=== PATIENT | female | born 1965 | race Caucasian/White ===

== ENCOUNTER 2025-02-27 19:09 | Emergency (ER) | payer BC, SELFPAY ==
[2025-02-27 19:34] VITALS: BP 176/90; PULSE 59; RESP 16; TEMP 36.6; O2SAT 100; BMI 27.6
[2025-02-27 19:51] VITALS: BP 162/77; PULSE 57; RESP 18; TEMP 37.2; O2SAT 100
--- OUTSIDE RECORDS SUMMARY | 2025-02-27 19:57 | XMS_ITS | Continuity of Care Document ---
[facility] Organization [place] [facility] [facility] Address [address] [place] [address] Assessment Encounter Date Assessment Date Assessment LastModified by Organization Details LastModified Time 02/20/2025 02/20/2025 BSE reviewed and recommended . Reviewed calcium needs, exercise, and prevention of osteoporosis . Periodic colonoscopy screening recommended . Reviewed normal menopause and menopausal symptoms . Mammogram recommended yearly The patient was advised to continue a healthy diet and exercise regularly. She also was advised to: followup with a professional housing consultant for a colonoscopy have a mammogram have a practice physician evaluation. Labs will be sent to evaluate blood count, renal function lipids and vitamin D. [email or web address] Not available 02/20/2025 22:24:22 Plan of Treatment Reminders Order Date Submit Date Provider Last Modified By Organization Details Last Modified Time Details Appointments None recorded . Lab TSH + free T4, serum 02/21/20 [facility], [address], [address], [place], [address], 5 09:13:40 HbA1c (hemoglo bin A1c), blood 02/21/20 [facility], [address], [place] [address], [place], [address], 5 09:13:42 CBC w/ auto diff 025 02/21/20 [facility], [address], [address] [address], [place], [address], 5 09:13:40 CMP, serum or plasma 02/21/20 [facility], [address], [place] [address], [place], [address], 09:13:41 lipid panel, serum 02/21/20 [facility], [address], [place] [address], [place], [address], 09:13:42 microalb umin/cre atinine, mass ratio, urine 02/21/20 [facility], [address] [place] [address] , [place], [address], 12:36:51 PTH (parathy roid hormone) , intact, serum or plasma 02/21/20 [facility], [address], [place] [address], [place], [address], 09:13:43 Referral None recorded . Procedures None recorded . Surgeries None recorded . Imaging None recorded . Medication Orders None recorded . Patient TargetsNo targets recorded. Patient InstructionsNo instructions recorded. Reason for Referral None Reported. Results Created Date Observation Date Name Description Value Unit Range Abnormal Flag Note LastModifiedBy Organization Detail LastModifiedTime 02/21/2002/20/2025 micro album in/cr eatin ine, mass ratio , urine Microalbumin 10 mg/L Not Available [address] , [place], [address], 02/20/2025 11:48:16 02/21/2002/20/2025 micro album in/cr eatin ine, mass ratio , urine Creatinine 50 mg/dL Not Available [address] , [place], [address], 02/20/2025 11:48:16 02/21/2002/20/2025 micro album in/cr eatin ine, mass ratio , urine Ratio <30 mg/g Not Available [address] , [place], [address], 02/20/2025 11:48:16 Result Notes None recorded. Problems Name Problem SNOMED Code Status Onset Date Resolution Date Notes Provider Name and Address Organization Details Recorded Time Aphthous ulcer of mouth 378833362 Active 2023 Liset Whiteside, [employer] [address], [place], [address], [place] - [facility] 4 10:13:30 Contact dermatitis 95736818 Active 2023 Liset Whiteside [employer] [address], [place], [address], [place] - [facility] 4 10:22:15 Psoriasis 3305127 Active 2023 Liset Whiteside [employer] [address], [place], [address], [place] - [facility] 4 10:23:54 Prediabetes 420720209 Active 2023 Liset Whiteside, [employer] [address], [place], [address], [place] [facility] 4 10:26:37 Body mass index 30+ - obesity 397528070 Active 2024 Liset Whiteside, [employer] [address], [place], [address], [place] [facility] 5 09:50:56 Contact dermatitis caused by urushiol from [place] poison jace 937162616 Active 2024 Liset Whiteside, [employer] [address], [place], [address], [place] - [facility] 5 09:54:47 Upper respiratory infection 79081786 Active 2024 Liset Whiteside [employer] [address], [place], [address], [place] [facility] 5 13:33:22 Problem Notes None recorded. Procedures Surgical History Date Name Laterality Status Provider Name and Address Organization Details Recorded Time Eye Surgery completed Flora Mccarty [place] - [facility] 03/06/2024 09:49:29 total nephrectomy completed Flora Mccarty [place] - [facility] 03/06/2024 09:50:07 cholecystectomy completed Flora Mccarty [place] - [facility] 03/06/2024 09:50:26 Imaging Results None recorded. Procedure Notes None recorded. Medical Equipment None Reported. Allergies Allergen ID Allergen Name Allergen Category Reaction Reaction Severity Criticality Documentation Date Start Date Code Code System Note Provider Name and Address Organization Details Recorded Time 015324 amoxicill in medicatio n hives Not available high 03/06/2024 723 [facility] [place] in [place], [place] - [facility] 09:46:49 Medications Name Sig Start Date Stop Date Status Note LastModified by Organization Details LastModified Time Prescriptio n - Prior Authorizati on Request active Not Available Not Available N ot Available azithromyci n 250 mg tablet TAKE TWO (2) TABLETS (500 MG) BY ORAL ROUTE ONCE DAILY FOR ONE (1) DAY, THEN TAKE 1 TABLET (250 MG) BY ORAL ROUTE ONCE DAILY FOR FOUR (4) DAYS 02/20 completed Not Available Not Available Not Available valacyclovi r 1 gram tablet TAKE ONE (1) TABLET BY MOUTH EVERY 12 HOURS active Not Available Not Available No t Available prednisone 20 mg tablet TAKE ONE (1) TABLET EVERY DAY BY ORAL ROUTE FOR FIVE (5) DAYS. 02/20 completed Not Available Not Available Not Available triamcinolo ne acetonide 0.1 % topical cream APPLY A THIN LAYER TO THE AFFECTED AREA(S) BY TOPICAL ROUTE TWO (2) TIMES PER DAY NEEDED active Not Available Not Available No t Available Depo-Medrol 80 mg/mL suspension for injection Take 80 mg every day by injection route for 1 day. 09/18 completed Not Available Not Available Not Available Wegovy 0.25 mg/0.5 mL subcutaneou s pen injector Inject 0.25 mg every week by subcutane ous route. 02/20 completed Not Available Not Available Not Available Vitals Date Recorded Body height Body mass index (BMI) Body weight Pain severity - 0-10 verbal numeric rating [Score] - Reported Respiratory rate Oxygen saturation Oxygen saturation in Arterial blood by Pulse oximetry Heart rate Systolic And Diastolic Provider Name and Address Organization Details Last Updated DateTime 5 167.64 cm 28.6 kg/m2 59462.8 5 g 0 16 /min 97 % 97 % 70 /min 120/76 mm[Hg] Flora Garcia in [place] [facility] 5 11:25:55 Social History Question Answer Notes LastModified by [employer] Details LastModified Time Tobacco Smoking Status Never Smoker Flora Mccarty null, [place] [facility] 03/06/2024 09:47:58 What Is Your Level Of Caffeine Consumption? Heavy Information not available 03/06/2024 What Type Of Diet Are You Following? REGULAR Information not available 03/06/2024 What Is The Highest Grade Or Level Of School You Have Completed Or The Highest Degree You Have Received? [id number] Information not available 03/06/2024 What Is Your Relationship Status? Single Information not available 03/06/2024 Sex: Female Functional Status Question Answer Note LastModified by [employer] Details LastModified Time Do you use any illicit or recreational drugs? No Information not available 03/06/2024 What is your level of alcohol consumption? Occasional Information not available 03/06/2024 Are you currently employed? No Retired Information not available 03/06/2024 What is your exercise level? Occasional Information not available 03/06/2024 Mental Status None recorded. Family History Relationship Description Onset Age of this Age Resolved Age Notes LastModified by Organization Details LastModified Time Father Malignant neoplasm of prostate [email or web address] Not available 2024 11:12:20 Father Malignant neoplasm of bone [email or web address] Not available 2024 11:12:20 Father Prediabetes [email or web address] Not availab le 02/20/2025 11:12:20 Mother Hypertensive disorder [email or web address] Not available 09:55:15 Medical History No medical history recorded. Gynecological History Statement/Question Response Menses Monthly N Obstetrics History GPAL:G 0 P 0 0 0 0 Past Encounters Encounter ID Performer Location Encounter Start Date Encounter Closed Date Diagnosis/Indication Diagnosis SNOMED-CT Code Diagnosis ICD10 Code Diagnosis IMO Codes Diagnosis Note [id number] [place] [address] [facility] [address] [place]TI[place] [id number] 02/20/2025 11:11:06 02/20/2025 12:04:54 General examination of patient 916454559 Z00.00 Screening for cardiovascular system disease 928635919 Z13.6 Screening mammography 24 201178 Z12.31 scheduled Exercises education, guidance, and counseling 915082145 Z71.82 The patient was advised to continue a healthy diet and exercise regularly. Dietary ma nagement surveillance 938500304 Z71.3 Absent kidney 592664528 Z90.5 150809 Prediabetes 928454330 R7 3.03 Thyroid di sorder screening 314179339 Z13.29 635368 Health Concerns Section Related Observation LastModified by Organization Detai ls LastModified Time None Recorded Concern Status LastModified by Organization Details LastModified Time None Recorded Payers Encounter Date Sequence Insurance Name Policy Number Policy Carson Covered Member ID Carson Member ID Guarantor Name 02/20/2025 1 [place] [employer] [id number] Kasandra Olson [id number] Kasandra Olson Notes Date Note Type Note Provider Name and Address Organization Details Recorded Time 02/20/2025 text/html Kasandra is a 59 yof who presents to the clinic for annual wellness exam. She is actively eating better and has lost weight-she is exercising and playing pickleball. She denies any acute concerns. She is a previous kidney donor and does yearly labs to monitor the status of her kidney.She has a history of psoriasis which she reports she manages with hydrocortisone and it mainly affects the ears. She does report a small rash to the back of her neck which itches at times. mammogram-scheduled. cologuard-up to date Liset Whiteside APRN [address], [place], [address], [facility] - [facility] 02/20/2025 22:24:25 OBGyn Episode No OBEpisode recorded.
--- OUTSIDE RECORDS SUMMARY | 2025-02-27 19:57 | XMS_ITS | Data Portability ---
Author Organization [facility] Address [address] [place] [address] Assessment Encounter Date Assessment Date Assessment LastModified by Organization Details LastModified Time 03/06/2024 03/06/2024 New patient presented for admission to the practice. Studies ordered as below. Discussed plan with patient, who expressed understanding. Follow up as noted below. [email or web address] Not available 03/06/2024 22:04:40 07/23/2024 07/23/2024 Customary discus kayla of prescribed medication benefits, side effects, and compliance was done. Patient was instructed on proper skin care. Discussed disease presentation, treatment options, progression, complications, and outcomes with patient during this office visit. Risks, benefits, and alternatives of the medication have been discussed with the patient. She would like to move forward with a prescription of wegovy. [email or web address] Not available 07/23/2024 21:26:40 02/20/2025 02/20/2025 BSE reviewed and recommended . Reviewed calcium needs, exercise, and prevention of osteoporosis . Periodic colonoscopy screening recommended . Reviewed normal menopause and menopausal symptoms . Mammogram recommended yearly The patient was advised to continue a healthy diet and exercise regularly. She also was advised to: followup with a magazine repairer for a colonoscopy have a mammogram have a song writer evaluation. Labs will be sent to evaluate blood count, renal function lipids and vitamin D. [email or web address] Not available 02/20/2025 22:24:22 Plan of Treatment Reminders Order Date Submit Date Provider Last Modified By Organization Details Last Modified Time Details Appointments None recorde d. Lab TSH + free T4, serum 2024 025 [place] [facility], [address], [address], [place], [address], 09:13:40 HbA1c (hemogl obin A1c), blood 2024 [place] [facility], [address], [address], [place], [address], 5 09:13:42 CBC w/ auto diff 2024 [place] [facility], [address], [address], [place], [address], 5 09:13:40 CMP, serum or plasma 2024 [place] [facility], [address], [address], [place], [address], 5 09:13:41 lipid panel, serum 2024 [place] [facility], [address], [address], [place], [address], 5 09:13:42 microal bumin/c reatini ne, mass ratio, urine 2024 [facility], [address] [place] [address] , [place], [address], 12:36:51 PTH (parath yroid hormone ), intact, serum or plasma 2024 [place] [facility], [address], [address], [place], [address], 09:13:43 noninva sive colorec adwoa cancer DNA + occult blood screeni ng, QL, stool 2024 [place] [facility], [address], [address], [place], [address], 5 10:21:27 lipid panel, serum 2023 024 [place] [facility], [address], [address], [place], [address], 4 11:15:01 HbA1c (hemogl obin A1c), blood 2023 024 [place] [facility], [address], [address], [place], [address], 4 11:15:02 CMP, serum or plasma 2023 024 [place] [facility], [address], [address], [place], [address], 4 11:15:00 CBC w/ auto diff 2023 024 [place] [facility], [address], [address], [place], [address], 4 11:14:59 PTH (parath yroid hormone ), intact, serum or plasma 2023 024 [place] [facility], [address], [address], [place], [address], 4 11:15:02 urinaly sis, dipstic k [address], [address] [place] [address] , [place], [address], 4 14:22:32 microal bumin/c reatini ne, mass ratio, urine [address], [address] [place] [address] , [place], [address], 4 14:22:32 Referral None recorde d. Procedures None recorde d. Surgeries None recorde d. Imaging None recorde d. Medication Orders Depo-Me drol 80 mg/mL suspens ion for injecti on 2024 025 [email or web address] Not available 5 13:32:11 prednis one 20 mg tablet 2024 025 [facility], [address] [place] [address], [address], 5 11:22:53 Wegovy 0.25 mg/0.5 mL subcuta neous pen injecto r 2024 025 [facility], [address] [place] [address], [address], 5 07:54:56 valacyc lovir 1 gram tablet 2023 024 [facility], [address] [place] [address], [address], 4 10:14:17 triamci nolone acetoni de 0.1 % topical cream 2023 024 [facility], [address] [place] [address], [address], 4 10:27:20 Patient TargetsNo targets recorded. Patient Instructions Encounter Date Encounter Id Patient Instructions Last Modified By Organization Details Last Modified Time 03/06/2024 [id number] canker sore: car e instructions [email or web address] Not available 03/06/2024 10:14:16 psoriasis: care instructions [email or web address] Not available 03/06/2024 10:27:19 07/23/2024 [id number] learning about healthy weight [email or web address] Not available 07/23/2024 10:16:51 body mass index: care instructions [email or web address] Not available 07/23/2024 10:16:51 Reason for Referral None Reported. Results Created Date Observation Date Name Description Value Unit Range Abnormal Flag Note LastModifiedBy Organization Detail LastModifiedTime 03/06/20 24 03/07/2024 CBC WITH DIFFE RENTI AL/PL ATELE T WBC 7.0 x10e3 /uL 3.4-10 .8 normal Eff ectiv e Decem zack 2023 profi josefa [id number] 5 WBC will be made* * non-o rdera ble as a stand -toño e order code. Not Available [facility] ([facility]) [address] [facility] [address], [place], [address], 03/07/2024 11:14:59 03/06/20 24 03/07/2024 CBC WITH DIFFE RENTI AL/PL ATELE T RBC 4.92 x10e6 /uL 3.77-5 .28 normal Not Available [facility] ([facility]) [address] [place], [address], 03/07/2024 11:14:59 03/06/20 24 03/07/2024 CBC WITH DIFFE RENTI AL/PL ATELE T hemoglobin 13.9 g/dL 11.1-1 5.9 normal Not Available [facility] ([facility]) [address] [facility], [place], [address], 03/07/2024 11:14:59 03/06/20 24 03/07/2024 CBC WITH DIFFE RENTI AL/PL ATELE T hematocrit 44.3 % 34.0-4 6.6 normal Not Available [facility] ([facility]) [address] [place], [address], 03/07/2024 11:14:59 03/06/20 24 03/07/2024 CBC WITH DIFFE RENTI AL/PL ATELE T MCV 90 fL 79-97 normal Not Available [facility] ([facility]) [address] [place], [address], 03/07/2024 11:14:59 03/06/20 24 03/07/2024 CBC WITH DIFFE RENTI AL/PL ATELE T MCH 28.3 pg 26.6-3 3.0 normal Not Available [facility] ([facility]) [address] [place], [address], 03/07/2024 11:14:59 03/06/20 24 03/07/2024 CBC WITH DIFFE RENTI AL/PL ATELE T MCHC 31.4 g/dL 31.5-3 5.7 below low normal Not Available [facility] ([facility]) [address] [facility], [place], [address], 03/07/2024 11:14:59 03/06/20 24 03/07/2024 CBC WITH DIFFE RENTI AL/PL ATELE T RDW 12.7 % 11.7-1 5.4 Not Available [facility] ([facility]) [address] [facility] [address], [place], [address], 03/07/2024 11:14:59 03/06/20 24 03/07/2024 CBC WITH DIFFE RENTI AL/PL ATELE T platelets 315 x10e3 /uL 150-45 0 normal Not Available [facility] ([facility]) [address] [facility], [place], [address], 03/07/2024 11:14:59 03/06/20 24 03/07/2024 CBC WITH DIFFE RENTI AL/PL ATELE T neutrophils 46 % not estab. normal Not Available [facility] ([facility]) [address] [facility], [place], [address], 03/07/2024 11:14:59 03/06/20 24 03/07/2024 CBC WITH DIFFE RENTI AL/PL ATELE T lymphs 43 % not estab. normal Not Available [facility] ([facility]) [address] [facility], [place], [address], 03/07/2024 11:14:59 03/06/20 24 03/07/2024 CBC WITH DIFFE RENTI AL/PL ATELE T monocytes 6 % not estab. normal Not Available [facility] ([facility]) [address] [facility], [place], [address], 03/07/2024 11:14:59 03/06/20 24 03/07/2024 CBC WITH DIFFE RENTI AL/PL ATELE T eos 4 % not estab. normal Not Available [facility] ([facility]) [address] [facility], [place], [address], 03/07/2024 11:14:59 03/06/20 24 03/07/2024 CBC WITH DIFFE RENTI AL/PL ATELE T basos 1 % not estab. normal Not Available [facility] ([facility]) [address] [facility], [place], [address], 03/07/2024 11:14:59 03/06/20 24 03/07/2024 CBC WITH DIFFE RENTI AL/PL ATELE T immature cells CAR INSTALLATIONS SUPERVISOR Not Available [facility] ([facility]) [address] [place], [address], 03/07/2024 11:14:59 03/06/20 24 03/07/2024 CBC WITH DIFFE RENTI AL/PL ATELE T neutrophils (absolute) 3.2 x10e3 /uL 1.4-7. 0 normal Not Available [facility] ([facility]) [address] [place], [address], 03/07/2024 11:14:59 03/06/20 24 03/07/2024 CBC WITH DIFFE RENTI AL/PL ATELE T lymphs (absolute) 3.0 x10e3 /uL 0.7-3. 1 normal Not Available [facility] ([facility]) [address] [place], [address], 03/07/2024 11:14:59 03/06/20 24 03/07/2024 CBC WITH DIFFE RENTI AL/PL ATELE T monocytes(ab solute) 0.5 x10e3 /uL 0.1-0. 9 normal Not Available [facility] ([facility]) [address] [place], [address], 03/07/2024 11:14:59 03/06/20 24 03/07/2024 CBC WITH DIFFE RENTI AL/PL ATELE T eos (absolute) 0.3 x10e3 /uL 0.0-0. 4 normal Not Available [facility] ([facility]) [address] [facility], [place], [address], 03/07/2024 11:14:59 03/06/20 24 03/07/2024 CBC WITH DIFFE RENTI AL/PL ATELE T baso (absolute) 0.1 x10e3 /uL 0.0-0. 2 normal Not Available [facility] ([facility]) [address] [facility], [place], [address], 03/07/2024 11:14:59 03/06/20 24 03/07/2024 CBC WITH DIFFE RENTI AL/PL ATELE T immature granulocytes 0 % not estab. Not Available [facility] ([facility]) [address] [facility], [place], [address], 03/07/2024 11:14:59 03/06/20 24 03/07/2024 CBC WITH DIFFE RENTI AL/PL ATELE T immature grans (abs) 0.0 x10e3 /uL 0.0-0. 1 Not Available [facility] ([facility]) [address] [facility], [place], [address], 03/07/2024 11:14:59 03/06/20 24 03/07/2024 CBC WITH DIFFE RENTI AL/PL ATELE T NRBC CAR INSTALLATIONS SUPERVISOR Not Available [facility] ([facility]) [address] [facility], [place], [address], 03/07/2024 11:14:59 03/06/20 24 03/07/2024 CBC WITH DIFFE RENTI AL/PL ATELE T hematology comments: CAR INSTALLATIONS SUPERVISOR Not Available [facility] ([facility]) [address] [facility], [place], [address], 03/07/2024 11:14:59 03/06/20 03/07/2024 COMP. METAB OLIC PANEL (14) glucose 89 mg/dL 70-99 normal Not Available [facility] ([facility]) [address] [place], [address], 03/07/2024 11:15:00 03/06/20 24 03/07/2024 COMP. METAB OLIC PANEL (14) BUN 18 mg/dL 6-24 normal Not Available [facility] ([facility]) [address] [place], [address], 03/07/2024 11:15:00 03/06/20 24 03/07/2024 COMP. METAB OLIC PANEL (14) creatinine 1.26 mg/dL 0.57-1 .00 above high normal Not Available [facility] ([facility]) [address] [place], [address], 03/07/2024 11:15:00 03/06/20 24 03/07/2024 COMP. METAB OLIC PANEL (14) eGFR 49 mL/mi n/1.7 3 >59 below low normal Not Available [facility] ([facility]) [address] [place], [address], 03/07/2024 11:15:00 03/06/20 24 03/07/2024 COMP. METAB OLIC PANEL (14) BUN/creatini ne ratio 14 9-23 normal Not Available [facility] ([facility]) [address] [place], [address], 03/07/2024 11:15:00 03/06/20 24 03/07/2024 COMP. METAB OLIC PANEL (14) sodium 141 mmol/ L 134-14 4 normal Not Available [facility] ([facility]) [address] [place], [address], 03/07/2024 11:15:00 03/06/20 24 03/07/2024 COMP. METAB OLIC PANEL (14) potassium 4.6 mmol/ L 3.5-5. 2 normal Not Available [facility] ([facility]) [address] [facility] [place], [address], 03/07/2024 11:15:00 03/06/20 24 03/07/2024 COMP. METAB OLIC PANEL (14) chloride 103 mmol/ L 96-106 normal Not Available [facility] ([facility]) [address] [facility] [place], [address], 03/07/2024 11:15:00 03/06/20 24 03/07/2024 COMP. METAB OLIC PANEL (14) carbon dioxide, total 24 mmol/ L 20-29 normal Not Available [facility] ([facility]) [address] [place], [address], 03/07/2024 11:15:00 03/06/20 24 03/07/2024 COMP. METAB OLIC PANEL (14) calcium 9.8 mg/dL 8.7-10 .2 normal Not Available [facility] ([facility]) [address] [facility] [place], [address], 03/07/2024 11:15:00 03/06/20 24 03/07/2024 COMP. METAB OLIC PANEL (14) protein, total 8.0 g/dL 6.0-8. 5 normal Not Available [facility] ([facility]) [address] [facility] [place], [address], 03/07/2024 11:15:00 03/06/20 24 03/07/2024 COMP. METAB OLIC PANEL (14) albumin 4.6 g/dL 3.8-4. 9 normal Not Available [facility] ([facility]) [address] [facility] [place], [address], 03/07/2024 11:15:00 03/06/20 24 03/07/2024 COMP. METAB OLIC PANEL (14) globulin, total 3.4 g/dL 1.5-4. 5 Not Available [facility] ([facility]) [address] [place], [address], 03/07/2024 11:15:00 03/06/20 24 03/07/2024 COMP. METAB OLIC PANEL (14) bilirubin, total 0.5 mg/dL 0.0-1. 2 normal Not Available [facility] ([facility]) [address] [place], [address], 03/07/2024 11:15:00 03/06/20 24 03/07/2024 COMP. METAB OLIC PANEL (14) alkaline phosphatase 110 IU/L 44-121 normal Not Available [facility] ([facility]) [address] [place], [address], 03/07/2024 11:15:00 03/06/20 24 03/07/2024 COMP. METAB OLIC PANEL (14) AST (SGOT) 18 IU/L 0-40 normal Not Available [facility] ([facility]) [address] [place], [address], 03/07/2024 11:15:00 03/06/20 24 03/07/2024 COMP. METAB OLIC PANEL (14) ALT (SGPT) 13 IU/L 0-32 normal Not Available [facility] ([facility]) [address] [place], [address], 03/07/2024 11:15:00 03/06/20 24 03/07/2024 LIPID PANEL cholesterol, total 195 mg/dL 100-19 9 normal Not Available [facility] ([facility]) [address] [place], [address], 03/07/2024 11:15:01 03/06/20 24 03/07/2024 LIPID PANEL triglyceride s 71 mg/dL 0-149 normal Not Available [facility] ([facility]) [address] [facility] [place], [address], 03/07/2024 11:15:01 03/06/20 24 03/07/2024 LIPID PANEL HDL cholesterol 57 mg/dL >39 normal Not Available [facility] ([facility]) [address] [place], [address], 03/07/2024 11:15:01 03/06/20 24 03/07/2024 LIPID PANEL VLDL cholesterol gerda 13 mg/dL 5-40 Not Available [facility] ([facility]) [address] [place], [address], 03/07/2024 11:15:01 03/06/20 24 03/07/2024 LIPID PANEL LDL chol calc ([facility]) 125 mg/dL 0-99 above high normal Not Available [facility] ([facility]) [address] [place], [address], 03/07/2024 11:15:01 03/06/20 24 03/07/2024 LIPID PANEL LDL calc comment: CAR INSTALLATIONS SUPERVISOR Not Available [facility] ([facility]) [address] [place], [address], 03/07/2024 11:15:01 03/06/20 24 03/07/2024 HEMOG LOBIN A1C hemoglobin A1C 5.5 % 4.8-5. 6 normal Predi abete s: 5.7 - 6.4 Diabe sanchez: >6.4 Glyce jasmin contr ol for adult s with diabe sanchez: <7.0 Not Available [facility] ([facility]) [address] [place], [address], 03/07/2024 11:15:02 03/06/20 24 03/07/2024 PTH, INTAC T PTH, intact 38 pg/mL 15-65 normal Not Available [facility] ([facility]) [address] [place], [address], 03/07/2024 11:15:02 03/06/20 24 03/06/2024 micro album in/cr eatin ine, mass ratio , urine Microalbumin 10 mg/L Not Available [address] , [place], [address], 03/06/2024 11:11:22 03/06/20 24 03/06/2024 micro album in/cr eatin ine, mass ratio , urine Creatinine 50 mg/dL Not Available [address] , [place], [address], 03/06/2024 11:11:22 03/06/20 24 03/06/2024 micro album in/cr eatin ine, mass ratio , urine Ratio <30 mg/g Not Available [address] , [place], [address], 03/06/2024 11:11:22 03/06/20 24 03/06/2024 urina lysis , dipst ick Leukocytes Negati ve Not Available [address] , [place], [address], 03/06/2024 10:18:52 03/06/20 24 03/06/2024 urina lysis , dipst ick Nitrite negati ve Not Available [address] , [place], [address], 03/06/2024 10:18:52 03/06/20 24 03/06/2024 urina lysis , dipst ick Urobilinogen .2 Not Available [address] , [place], [address], 03/06/2024 10:18:52 03/06/20 24 03/06/2024 urina lysis , dipst ick Protein Negati ve Not Available [address] , [place], [address], 03/06/2024 10:18:52 03/06/20 24 03/06/2024 urina lysis , dipst ick pH 6.0 Not Available [address] , [place], [address], 03/06/2024 10:18:52 03/06/20 24 03/06/2024 urina lysis , dipst ick Blood Negati ve Not Available [address] , [place], [address], 03/06/2024 10:18:52 03/06/20 24 03/06/2024 urina lysis , dipst ick Specific Ryan 1.015 Not Available [address] , [place], [address], 03/06/2024 10:18:52 03/06/20 24 03/06/2024 urina lysis , dipst ick Ketone Negati ve Not Available [address] , [place], [address], 03/06/2024 10:18:52 03/06/20 24 03/06/2024 urina lysis , dipst ick Bilirubin Negati ve Not Available [address] , [place], [address], 03/06/2024 10:18:52 03/06/20 24 03/06/2024 urina lysis , dipst ick Glucose Negati ve Not Available [address] , [place], [address], 03/06/2024 10:18:52 03/06/20 24 03/06/2024 urina lysis , dipst ick Appearance Clear Not Available [address] , [place], [address], 03/06/2024 10:18:52 03/06/20 24 03/06/2024 urina lysis , dipst ick Color Yellow Not Available [address] , [place], [address], 03/06/2024 10:18:52 08/08/19 25 08/07/2024 COLOG UARD cologuard result reportable Negati ve negati ve normal The Colog uard (TM) test was perfo rmed on this speci men. NEGAT HUGO TEST RESUL T. A negat hugo Colog uard resul t indic ates a low likel ihood that a color ectal cance r (CRC) or advan mack adeno ma (smith omato us polyp s with more advan mack pre-m align ant featu res) is prese nt. The [facility] e that a perso n with a negat hugo Colog uard test has a color ectal cance r is less than 1 in 1500 (nega tive predi ctive value >99.9 %) or has an advan mack adeno ma is less than 5.3% (nega tive predi ctive value 94.7% ). These data are based on a prosp ectiv e cross -sect ional study of 10,00 0 indiv idual s at [facility] risk for color ectal cance r who were scree isaiah with both Colog uard and colon oscop y. (Yuni Willard. et al, N Engl J Med 2014; 370(1 4):12 86-12 97) The ignacia l value (refe rence range ) for this assay is negat hugo. COLOG UARD RE-SC REENI NG RECOM MENDA TION: Perio dic color ectal cance r scree steven is an impor tant part of preve ntive healt hcare for asymp tomat ic indiv idual s at [facility] risk for color ectal cance r. Follo wing a negat hugo Colog uard resul t, the Ameri can Cance r Socie ty and U.S. Multi -Soci ety Task Force scree steven guide lines recom mend a Colog uard re-sc lori montesinos inter robles of 3 years . Refer ences : Tyrone can Cance r Socie ty Guide line for Color ectal Cance r Scree steven: https ://lex w.can cer.o rg/ca ncer/ colon -rect al-ca ncer/ detec tion- diagn osis- stagi ng/ac s-rec ommen datio ns.ht ml.; John DK, Bryan palomares CR, Ignacio simon JK, Color ectal Cance r Scree steven: Recom menda tions for Physi cians and Patie nts from the U.S. Multi -Soci ety Task Force on Color ectal Cance r Scree steven , Mukund mayersntparul rolog y 2017; 112:1 016-1 030. TEST DESCR IPTIO N: [place] site algor ithmi c cash sis of stool DNA-b abib taveras with hemog lobin immun oassa y. Quant itati ve value s of indiv idual bioma rkers are not repor table and are not assoc iated with indiv idual bioma rker resul t refer ence range s. Colog uard is inten ded for color ectal cance r scree steven of adult s of eithe r sex, 45 years or older , who are at [facility] for color ectal cance r (CRC) . Colog uard has been appro tressa for use by the U.S. FDA. The perfo rmanc e of Colog uard was estab lishe d in a cross secti onal study of [facility] adult s aged 50-84 . Colog uard perfo rmanc e in patie nts ages 45 to 49 years was estim ated by chaz-g leahp cash sis of near- age group s. Colon oscop ies perfo rmed for a posit hugo resul t may find as the most clini tano signi fican t lesio n: color ectal cance r [4.0% ], advan mack adeno ma (incl uding sessi le [facility] polyp s great er than or equal to 1cm diame ter) [20%] or non- advan mack adeno ma [31%] ; or no color ectal neopl dianna [45%] . These estim ates are deriv ed from a prosp ectiv e cross -sect ional screparul harris study of , 0 indiv idual s at [facility] risk for color ectal cance r who were scree isaiah with both Colog uard and colon oscop y. (Yuni Hall et al, N Engl J Med 2014; 370(1 4):12 86-12 97.) Colog uard may produ ce a false negat hugo or false posit hugo resul t (no color ectal cance r or preca ncero us polyp prese nt at colon oscop y follo w up). A negat hugo Colog uard test resul t does not guara ntee the absen ce of CRC or advan mack adeno ma (pre- cance r). The curre nt Colog uard scree steven inter robles is every 3 years . (Amer ican Cance r Socie ty and U.S. Multi -Soci ety Task Force ). Colog uard perfo rmanc e data in a 0 patie nt pivot al study using colon oscop y as the refer ence metho d can be acces sed at the follo wing locat ion: www.e xactl abs.c om/re marcelino . Addit ional descr iptio n of the Colog uard test proce ss, warni ngs and preca ution s can be found at www.c melizaogu katie.c om. Not Available [facility] [address], [place], [address], 08/11/2024 10:21:27 02/21/20 25 02/20/2025 micro album in/cr eatin ine, mass ratio , urine Microalbumin 10 mg/L Not Available [address] , [place], [address], 02/20/2025 11:48:16 02/21/20 25 02/20/2025 micro album in/cr eatin ine, mass ratio , urine Creatinine 50 mg/dL Not Available [address] , [place], [address], 02/20/2025 11:48:16 02/21/20 25 02/20/2025 micro album in/cr eatin ine, mass ratio , urine Ratio <30 mg/g Not Available [address] , [place], [address], 02/20/2025 11:48:16 Result Notes None recorded. Problems Name Problem SNOMED Code Status Onset Date Resolution Date Notes Provider Name and Address Organization Details Recorded Time Aphthous ulcer of mouth 449738215 Active 2023 Liset Stevo, STAFF ENGINEER [address], [place], [address], [place] - [facility] 4 10:13:30 Contact dermatitis 17790374 Active 2023 Liset Whiteside, STAFF ENGINEER [address], [place], [address], [place] [facility] 4 10:22:15 Psoriasis 6350127 Active 2023 Liset Whiteside, STAFF ENGINEER [address], [place], [address], [place] [facility] 4 10:23:54 Prediabetes 071676204 Active 2023 Liset Whiteside STAFF ENGINEER [address], [place], [address], [place] [facility] 4 10:26:37 Body mass index 30+ - obesity 732370724 Active 2024 Lisetnicole Whiteside STAFF ENGINEER [address], [place], [address], [place] [facility] 5 09:50:56 Contact dermatitis caused by urushiol from [facility] jace 356167984 Active 2024 Lisetraquel Whiteside STAFF ENGINEER [address], [place], [address], [place] [facility] 09:54:47 Upper respiratory infection 72877081 Active 2024 Liset Whiteside, STAFF ENGINEER [address], [place], [address], [place] - [facility] 13:33:22 Problem Notes None recorded. Procedures Surgical [...] Name and Address Organization Details Recorded Time [id number] amoxicill in medicatio n hives Not available high 03/06/2024 723 [facility] Flora Gallenste in [place], [place] - [facility] 09:46:49 Medications Name Sig Start Date [...] height Body mass index (BMI) Body weight Body temperature Pain severity - 0-10 verbal numeric rating [Score] - Reported Respiratory rate Heart rate Oxygen saturation Oxygen saturation in Arterial blood by Pulse oximetry Systolic And Diastolic Provider Name and Address Organization Details Last Updated DateTime 5 167.64 cm 33.1 kg/m2 59224.5 4 g 98.2 [degF] 0 16 /min 68 /min 99 % 99 % 120/74 mm[Hg] Flora Garcia [facility] 5 09:32:40 Date Recorded Body height Body mass index (BMI) Body weight Pain severity - 0-10 verbal numeric rating [Score] - Reported Respiratory rate Oxygen saturation Oxygen saturation in Arterial blood by Pulse oximetry Heart rate Systolic And Diastolic Provider Name and Address Organization Details Last Updated DateTime 5 167.64 cm 28.6 kg/m2 50202.8 5 g 0 16 /min 97 % 97 % 70 /min 120/76 mm[Hg] Flora Garcia [facility] 5 11:25:55 Date Recorded Body weight Body temperature Body mass index (BMI) Body height Pain severity - 0-10 verbal numeric rating [Score] - Reported Respiratory rate Heart rate Oxygen saturation Oxygen saturation in Arterial blood by Pulse oximetry Systolic And Diastolic Provider Name and Address Organization Details Last Updated DateTime 4 273771. 96 g 98.3 [degF] 35.7 kg/m2 167.64 cm 4 16 /min 76 /min 98 % 98 % 120/76 mm[Hg] Flora Garcia [facility] 4 09:58:02 Social History Question Answer Notes LastModified by Organizat ion Details LastModified Time Tobacco Smoking Status Never Smoker Flora Lul [facility] 03/06/2024 09:47:58 What Is Your Level Of Caffeine Consumption? Heavy Information not available 03/06/2024 What Type Of Diet Are You Following? REGULAR Information not available 03/06/2024 What Is The Highest Grade Or Level Of School You Have Completed Or The Highest Degree You Have Received? [id number] Information not available 03/06/2024 What Is Your Relationship Status? Single Information not available 03/06/2024 Sex: Female Functional Status Question Answer Note LastModified by Organizat ion Details LastModified Time Do you use any [...] ICD10 Code Diagnosis IMO Codes Diagnosis Note [id number] Liset Whiteside APRN [address] [place] [address] 03/06/2024 09:30:47 03/06/2024 10:41:26 History of kidney donation 566573470 Z90.5 Aphthous u lcer of mouth 741148560 K12.0 Hyperlipid emia screening 171946696 Z13.220 Psoriasis 3171084 L40.9 Prediabetes 694405210 R7 3.03 [id number] Liset Whiteside APRN [address] [place] [address] 07/23/2024 09:15:36 07/23/2024 10:22:49 Body mass index 30+ - obesity 131010076 E66.9 08326027 Obesity 112063844 E66.9 Screening for malignant neoplasm of colon 962753664 Z12.11 [id number] Contact de rmatitis caused by urushiol from [facility] jace 712669661 L23.7 [id number] Liset Whiteside APRN [place] [address] [place] [address] 02/20/2025 11:11:06 02/20/2025 12:04:54 General examination of patient 982380791 Z00.00 Screening for cardiovascular system disease 534634790 Z13.6 Screening mammography 24 912849 Z12.31 scheduled Exercises education, guidance, and counseling 449552408 Z71.82 The patient was advised to continue a healthy diet and exercise regularly. Dietary ma nagement surveillance 065756416 Z71.3 Absent kidney 935856240 Z90.5 [id number] Prediabetes 737421878 R7 3.03 Thyroid di sorder screening 306083648 Z13.29 [id number] Health Concerns Section Related Observation LastModified by Organization Detai ls LastModified Time None Recorded Concern Status LastModified by Organization Details LastModified Time None Recorded Advance Directives Directive None Recorded Payers Insurance Date Sequence Insurance Name Policy Number Policy Carson Covered Member ID Carson Member ID Guarantor Name 02/17/2025 1 [place] [employer] [id number] Kasandra Olson [id number] Kasandra Olson Notes Date Note Type Note Provider Name and Address Organization Details Recorded Time 03/06/2024 text/html Kasandra is a 58 yof who presents to the clinic to establish with new provider. She denies any acute concerns or medical history. She has lived in [place] since June. Prior to that, she has traveled frequently living in [place] and [place] most recently. She is a previous kidney donor and does yearly labs to monitor the status of her kidney. Last GFR was noted <60.She has a history of psoriasis which she reports she manages with hydrocortisone and it mainly affects the ears. She does report a small rash to the back of her neck which itches at times. She denies utilizing any medications aside from PRN valcyclovir for cold sores intermittently. Patient needs order for mammogram. Cologuard test was performed this year and negative-patient has access to her [facility] patient portal. Time spent with patient including chart review assessment and plan:20 min. Liset Whiteside APRN [address], [place], [address], [place] - [facility] 03/06/2024 22:04:56 07/23/2024 text/html ROS as noted in the HPI Kasandra is a 58 yof who presents to the clinic for a rash from poison jace x 2 weeks .patient also needs order for cologuard and would like to discuss weight loss options. Patient is a 58 year old female who has struggled with obesity for years. Patient is motivated to lose weight, be more active, and be healthier.Starting weight: 223Current weight: 205Goal weight: 170Patient is currently exercising 3 times per week at 30 mins/hours a day.Patient is currently intaking 1200 calories per day.Patient has tried and failed the following program(s) 25% meat 25% carb 50% veg.Patient has the following comorbidities, as mentioned in the problem list.Last Lipids: 125 Liset Whiteside APRN [address], [place], [address], [employer] - [facility] 07/23/2024 21:27:25 02/20/2025 text/html Kasandra is a 59 yof [...] date Liset Whiteside APRN [address], [place], [address], [place] - [facility] 02/20/2025 22:24:25 OBGyn Episode No OBEpisode recorded.
--- NOTE | 2025-02-27 19:59 | ED_ITS ---
<Statement entered by Eunice Lambert DO - 02/28/25 01:36> I was consulted by the VIVIAN, and we discussed the complexity of problems being addressed. I approve the treatment and management plan for this patient's care in the emergency department, thus performing a substantial portion of the medical decision making. Eunice Lambert DO Discharge Plan Disposition Patient Disposition: Home, Self-Care Prescriptions Prescriptions: No Action No Known Home Medications Referrals Follow up/Referrals: Liset Whiteside APRN [Primary Care Provider, Medical] - See instructions Activity Restrictions/Add. Instructions Additional Instructions/Restrictions: will call you from an [phone] number tomorrow with an appointment for ophthalmology clinic. Clinical Impressions Clinical Impression: Floaters Instructions Patient Instructions: DI for Eye Floaters Print Language Print Language: Arabic Discharge ED Provider: Eunice Lambert General Adult HPI <Jaimie Waterman (ED), SEAMUS - Last Filed: 02/27/25 21:43> General Chief complaint: Eye Problems Stated complaint: flashes of light in eyes Time Seen by Provider: 02/27/25 19:48 Mode of Arrival: Family Vehicle Source of Information: Patient Description of Symptoms (Recalled from ER Triage Doc. by RN): Pt reports that she is seeing black spots and light flashes intermittently since 1702 tonight to the right eye only. Denies any pain in eye. Denies any recent trauma, fall, headache, or dizziness. States she had lasix surgery approx 20 years ago. Pupils are PERRLA and approx 2.5. No difficulty with vision at this time. History of Present Illness HPI narrative: 59-year-old female presents to the ED today after she started seeing flashes of light in the right side of her right eye while she was driving. She has been seeing floaters for over a week but she was driving a little bit ago and started having a flash of light in the lateral side of her right eye. She says these are sporadic and only last for seconds and go away. She says it was dark outside when she was driving but now these flashes of lights are gone completely. She has no headache. She has not been straining her eyes. Her last eye exam was recently. She does not have diabetes. Typically her blood pr essure is under control and she takes no blood pressure medication. She did have head Lasix 20 years ago. Related Data Home Medications ?Medication ?Instructions ?Recorded ?Confirmed No Known Home Medications 02/27/2502/16 Allergies Allergy/AdvReac Type Severity Reaction Status Date / Time Penicillins Allergy Hives Verified 02/27/25 19:42 PFSH <Jaimie Waterman (ED), BOARD DESIGN ENGINEER - Last Filed: 02/27/25 21:43> [facility] Disclaimer: The information contained in this section may have been updated after the patient was seen, as this information can be updated by other users. Social History (Updated 02/27/25 @ 21:43 by Jaimie Waterman (ED), BOARD DESIGN ENGINEER) Smoking Status: Never smoker alcohol intake: former current occupational status: other Travel in the last 8 weeks?: None Have you lived/traveled outside US in past 30 days?: No Contact w/someone who lives/traveled outside US past 30 days?: No Exposure to someone with infectious disease in past 14 days?: No Do you have a fever (greater than 100.4 F or 38 C)?: No Have you tested positive for COVID-19?: No Exposed to someone with COVID-19 in past 14 days?: No Do you have a sore throat?: No Do you have a cough?: No Do you have any weakness?: No Do you have any diarrhea?: No Are you experiencing any unusual bleeding?: No Do you have any muscle aches/pain?: No Do you have any abdominal pain?: No Are you experiencing loss of taste or smell?: No <Jaimie Waterman (ED), BOARD DESIGN ENGINEER - Last Filed: 02/27/25 21:43> ROS Obtained: Yes Systems reviewed as appropriate & no additional complaints except as documented Constitutional Constitutional: Reports as per HPI Physical Exam <Jaimie Waterman (ED), BOARD DESIGN ENGINEER - Last Filed: 02/27/25 21:43> General General appearance: alert and in no apparent distress Head Head exam: atraumatic and normocephalic Eye Eye exam: Present normal appearance, PERRL and EOMI ENT ENT exam: Present normal oropharynx and mucous membranes moist Neck Neck exam: Present full ROM and trachea midline Respiratory Respiratory exam: Present normal lung sounds bilaterally Cardiovascular Cardiovascular exam: Present regular rate, normal rhythm, normal heart sounds, +S1 and +S2 Extremities Exam Extremities exam: Present full ROM and normal capillary refill Neurological Exam Neurological exam: Present alert and oriented X3 Skin Skin exam: Present warm and dry Medical Decision Making <Jaimie Waterman (ED), BOARD DESIGN ENGINEER - Last Filed: 02/27/25 21:43> Medical Records Screening: Per USPSTF and CDC recommendations, given the prevalence of disease in our region, it is our hospital?s policy to screen for HIV and viral Hepatitis for all patients aged 18 and over and those with ongoing risk factors. Wilbur Inquiry Pt receiving controlled substance: No Wilbur was queried for this patient: No Vital Signs: 02/27/25 19:34 02/27/25 19:51 02/27/25 21:19 Temperature 97.8 F 98.9 F Temperature Source Oral Pulse Rate 57 L 56 L Pulse Rate [Right] 59 L Respiratory Rate 16 18 16 Blood Pressure 162/77 H 137/72 Blood Pressure [Right Arm] 176/90 H Blood Pressure Mean [Right Arm] 118 Blood Pressure Source [Right Arm] Automatic Cuff 02 Sat by Pulse Oximetry 100 100 98 Oxygen Delivery Method Room Air Room Air Room Air 02/27/25 22:24 Temperature 98.8 F Temperature Source Pulse Rate 74 Pulse Rate [Right] Respiratory Rate 19 Blood Pressure 132/78 Blood Pressure [Right Arm] Blood Pressure Mean [Right Arm] Blood Pressure Source [Right Arm] 02 Sat by Pulse Oximetry Oxygen Delivery Method Room Air Orders (Tests/Meds): ED MEDICATIONS Discontinued Medications Generic Name Dose Route Start Last Admin Trade Name Freq PRN Reason Stop Dose Admin Tetracaine HCl 1 ml 02/27/25 21:16 02/27/25 21:19 Tetracaine 0.5% Opth Marleen 15ml OP 02/27/25 21:17 1 ml ONCE ONE Administration ORDERS Category Date Time Status POCUS Point of Care (ER Only) Stat Exams 02/27/25 19:57 Completed Medical Decision Narrative: patient is a 59-year-old female presenting to the emergency department for evaluation of sporadic flashing occurring in her right eye. Patient is hemodynamically stable and nontoxic-appearing upon arrival, afebrile. Differential diagnosis includes glaucoma, retinal detachment, among others. Workup will be conducted with ultrasound. Dr. Lambert will assess patient and do POCUS of her eyes. Patient is having floaters in both eyes where she was just having them in left eye. She saw her financial underwriter on and was only having them in her left but now is having underwent both. Dr. Lambert is going to check her pressures. Patient is going to see her financial underwriter again soon she has an upcoming appointment. 2130 I have called to try to get an appointment with ophthalmology for this patient and they are going to call back. [address] Benson(opthalmologist) and he said that they had an opening in [place] where they have a clinic tomorrow which is where patient lives. They will call her with appointment tomorrow. Patient will be discharged. Patient safe for discharge home <Eunice Lambert, DO - Last Filed: 02/28/25 01:36> Vital Signs: 02/27/25 19:34 02/27/25 19:51 02/27/25 21:19 Temperature 97.8 F 98.9 F Temperature Source Oral Pulse Rate 57 L 56 L Pulse Rate [Right] 59 L Respiratory Rate 16 18 16 Blood Pressure 162/77 H 137/72 Blood Pressure [Right Arm] 176/90 H Blood Pressure Mean [Right Arm] 118 Blood Pressure Source [Right Arm] Automatic Cuff 02 Sat by Pulse Oximetry 100 100 98 Oxygen Delivery Method Room Air Room Air Room Air 02/27/25 22:24 Temperature 98.8 F Temperature Source Pulse Rate 74 Pulse Rate [Right] Respiratory Rate 19 Blood Pressure 132/78 Blood Pressure [Right Arm] Blood Pressure Mean [Right Arm] Blood Pressure Source [Right Arm] 02 Sat by Pulse Oximetry Oxygen Delivery Method Room Air Orders (Tests/Meds): ED MEDICATIONS Discontinued Medications Generic Name Dose Route Start Last Admin Trade Name Freq PRN Reason Stop Dose Admin Tetracaine HCl 1 ml 02/27/25 21:16 02/27/25 21:19 Tetracaine 0.5% Opth Marleen 15ml OP 02/27/25 21:17 1 ml ONCE ONE Administration ORDERS Category Date Time Status POCUS Point of Care (ER Only) Stat Exams 02/27/25 19:57 Completed Medical Decision Narrative: patient is a 59-year-old female presenting to the emergency department for evaluation of sporadic flashing occurring in her right eye. Patient is hemodynamically stable and nontoxic-appearing upon arrival, afebrile. Differential diagnosis includes glaucoma, retinal detachment, among others. Workup will be conducted with ultrasound. Dr. Lambert will assess patient and do POCUS of her eyes. Patient is having floaters in both eyes where she was just having them in left eye. She saw her financial underwriter on and was only having them in her left but now is having underwent both. Dr. Lambert is going to check her pressures. Patient is going to see her financial underwriter again soon she has an upcoming appointment. IOP pressures bilaterally were 14 right eye and 12 left eye. Bedside US showed no evidence of vitreous hemorrhage or retinal detachment. 2130 I have called to try to get an appointment with ophthalmology for this patient and they are going to call back. [address] Benson(opthalmologist) and he said that they had an opening in [place] where they have a clinic tomorrow which is where patient lives. They will call her with appointment tomorrow. Patient will be discharged. Patient safe for discharge home. Critical Care <Jaimie Waterman (ED), BOARD DESIGN ENGINEER - Last Filed: 02/27/25 21:43> Critical Care Time Critical Care Time: No
[2025-02-27 21:19] VITALS: BP 137/72; PULSE 56; RESP 16; O2SAT 98
[2025-02-27] MEDS: TETRACAINE 0.5% OPTH SOL 15ML OP (21:19)
[2025-02-27 22:24] VITALS: BP 132/78; PULSE 74; RESP 19; TEMP 37.1; O2SAT 98
== END 2025-02-27 22:28 | disposition home or self-care (01) ==
PROVIDERS: Emergency Provider Student in an Organized Health Care Education/Training Program; PCP Nurse Practitioner Family
DX: H43.399 Other vitreous opacities, unspecified eye (principal)
CPT/HCPCS: 99283